=== PATIENT | female | born 1990 | race African-American/Black ===

== ENCOUNTER 2017-01-12 23:21 | Emergency (ER) | payer BC ==
[2017-01-13] MEDS ORDERED: PHENYTOIN SODIUM EXTENDED 100 MG CAPSULE PO ONE (02:16)
--- NOTE | 2017-01-13 02:20 | ER Document Report ---
ED General - General Chief Complaint: Probable Seizure Stated Complaint: POSSIBLE SEIZURE Time Seen by Provider: 01/13/17 02:07 Notes: Patient is a pleasant 18-year-old female who presents with complaint of a seizure. She has a history of epilepsy. She is on phenytoin 300 mg 3 times a day. She did not have her dosages today. Around 9 PM she was playing on the computer and then had a seizure. She did bite her tongue. She only had 1 seizure. Son sure exactly along the lasted. Currently she just has a mild headache. She did hit the right side of her head. She has just mild swelling just lateral to her right orbit. No vomiting. No other complaints at this time. No active bleeding from her tongue. No recent fevers or infections. No recent vomiting or diarrhea. TRAVEL OUTSIDE OF THE [place] IN LAST 30 DAYS: No - Related Data Allergies/Adverse Reactions: No Known Allergies Allergy (Unverified 02/28/14 22:16) Past Medical History - Social History Smoking Status: Never Smoker Frequency of alcohol use: None Drug Abuse: None Family History: DM Patient has suicidal ideation: No Patient has homicidal ideation: No Neurological Medical History: Reports: Hx Seizures - 1st episode 02/28/14 Renal/ Medical History: Denies: Hx Peritoneal Dialysis - Immunizations Hx Diphtheria, Pertussis, Tetanus Vaccination: Yes Review of Systems - Review of Systems Notes: My Normal Review Basic REVIEW OF SYSTEMS: CONSTITUTIONAL : Denies fever, chills, or sweats. Denies recent illness. EENT: Denies eye, ear, throat, or mouth pain or symptoms. Denies nasal or sinus congestion. RESPIRATORY: Denies cough, cold, or chest congestion. Denies shortness of breath, difficulty breathing, or wheezing. GASTROINTESTINAL: Denies abdominal pain. Denies nausea, vomiting, or diarrhea. Denies constipation. Last BM: GENITOURINARY: Denies difficulty urinating, painful urination, burning, frequency, or blood in urine. MUSCULOSKELETAL: Denies neck or back pain or joint pain or swelling. SKIN: Denies rash or skin lesions.ands. NEUROLOGICAL: Had a seizure Denies weakness or paralysis or loss of use of either side. Denies problems with gait or speech. Denies sensory or motor loss. ALL OTHER SYSTEMS REVIEWED AND NEGATIVE. Physical Exam - Vital signs Vitals: Temp Pulse Resp BP Pulse Ox 98.4 F 96 18 131/80 H 97 01/13/17 00:01 01/13/17 00:01 01/13/17 00:01 01/13/17 00:01 01/13/17 00:01 - Notes Notes: General Appearance: Well nourished, alert, cooperative, no acute distress, no obvious discomfort. Vitals: reviewed, See vital signs table. Head: Very mild area of swelling just lateral to the right orbit. Eyes: PERRL, EOMI, Conjuctiva clear Mouth: Superficial bite coty on tongue. Throat: No tonsillar inflammation, No airway obstruction, No lymphadenopathy Neck: Supple, no neck tenderness, Lungs: No wheezing, No rales, No rhonci, No accessory muscle use, good air exchange bilaterally. Heart: Normal rate, Regular rythm, No murmur, no rub Extremities: strength 5/5 in all extremities, good pulses in all extremities, no swelling or tenderness in the extremities, no edema. Skin: warm, dry, appropriate color, no rash Neuro: speech clear, oriented x 3, normal affect, responds appropriately to questions. Cranial nerves II through XII are intact. Distal sensation intact. Patient moves all extremities without difficulty. Normal Romberg. Course - Vital Signs Vital signs: Temp Pulse Resp BP Pulse Ox 98.4 F 96 18 131/80 H 97 01/13/17 00:01 01/13/17 00:01 01/13/17 00:01 01/13/17 00:01 01/13/17 00:01 - Transfer of Care Notes: 01/13/17 02:18 Patient had a seizure most likely due to noncompliance she forgot to take her medications today. I did offer her IV loading versus just given no oral dosage of her medication. Patient prefers oral does not want IV at this time. I do not feel that she requires any blood work. She's had no resistance vomiting or diarrhea. She's had no recent illnesses that would cause concern for electrolyte abnormalities. She looks well. No indication for CT scan of her head. I feel she is safe to be discharged home. I encourage return to ER she has recurrent seizures feels unwell. Patient agrees with plan and will be discharged home. Dictation of this chart was performed using voice recognition software; therefore, there may be some unintended grammatical errors. Discharge - Discharge Clinical Impression: Seizure Condition: Good Disposition: HOME, SELF-CARE Additional Instructions: Please take your seizure medications as prescribed. Please do not miss dosages. Please do not drive. These return to ER if you have recurrent seizures despite taking your medications properly, fevers, severe headache, vomiting, or feel unwell. Forms: Return to Work
[2017-01-13 03:55] VITALS: BP 124/82
== END 2017-01-13 03:10 | disposition home or self-care (01) ==
LOC: ER 23:21
DX: G40.909 Epilepsy, unspecified, not intractable, without status epilepticus (principal); T42.0X6A Underdosing of hydantoin derivatives, initial encounter; Z91.14 Patient's other noncompliance with medication regimen; Z79.899 Other long term (current) drug therapy; R51 Headache; R22.0 Localized swelling, mass and lump, head; X58.XXXA Exposure to other specified factors, initial encounter
CPT/HCPCS: 99283